=== PATIENT | male | born 1995 | race Hispanic/Latino ===

== ENCOUNTER 2023-03-24 00:24 | Emergency (ER) | payer SELFPAY ==
[2023-03-24] MEDS ORDERED: Tetracaine 0.5% PF 4 ML BOT ONE (01:22)
[2023-03-24] MEDS ORDERED: AcetaZOLAMIDE 250 MG TAB PO SCH (03:15)
[2023-03-24] MEDS ORDERED: DorzolamidE/Timolol 2%/0.5% Ophth Soln 10 ml Bottle L EYE SCH (03:15)
[2023-03-24] MEDS ORDERED: Brimonidine Tartrate 0.2% Ophth Soln 5 ml Bottle L EYE SCH (03:15)
== END 2023-03-24 05:15 | disposition home or self-care (01) ==
LOC: CSHERS 00:24
DX: H40.212 Acute angle-closure glaucoma, left eye (principal); H44.002 Unspecified purulent endophthalmitis, left eye; F17.210 Nicotine dependence, cigarettes, uncomplicated
CPT/HCPCS: 99283